=== PATIENT | female | born 1945 | race Hispanic/Latino ===

== ENCOUNTER 2017-07-12 04:04 | Observation (INO) | payer MEDICARE ==
[~2017-07-12] VITALS: Ht 144.8 cm; Wt 67.7 kg
[~2017-07-12 04:04] MED LIST: ADULT ASPIRIN81 MG; ADVAIR; ADVAIR 100-501 EACH INH; ALBUTEROL SULF8.5 GM IN; AMLODIPINE BESYL5 MG PO; ASPIR-LOW81 MG PO; ATENOLOL; CELEBREX200 MG PO; FISH OIL 1,0001 EAC9 PO; FLAGYL250 MG PO; FLUOXETINE HCL20 MG PO; GLIPIZIDE5 MG PO; HYDROCODONE; HYDROCODONE-AP1 EACH PO; IRON PO; KLONOPIN0.5 MG PO; LYRICA50 MG; NAPROXEN; NAPROXEN250 MG PO; NEXIUM40 MG PO; ONDANSETRON HCL4 MG PO; PROAIR HFA INH8.5 GM INH; ROPINIROLE HC0.25 MG PO; SYMBICORT 16010.2 GM; ULTRAM50 MG PO; Z MORPHINE SULFAT; Z.0.ADVAIR 250-501 E PO; Z.0.ATENOLOL100 MG PO; Z.0.GABAPENTIN300 MG PO; Z.0.KLONOPIN0.5 MG; Z.0.NEXIUM40 MG PO; Z.0.RESTASIS1 EACH OU; Z.0.SINGULAIR10 MG PO; Z.0.TIZANIDINE HCL4 PO; Z.1.MECLIZINE HCL25 PO; [UNRECOGNIZED DRUG - OTHER] PO
[2017-07-12] MEDS ORDERED: ONDANSETRON HCL 4 MG ORAL DISINTEGRATING TAB ONE (04:20)
[2017-07-12] MEDS ORDERED: SODIUM CHLORIDE 0.9% 1000ML 1,000 ML IV STA (04:25)
[2017-07-12] MEDS ORDERED: PANTOPRAZOLE 40 MG 10ML VIAL IV STA (04:25)
[2017-07-12] MEDS ORDERED: ONDANSETRON HCL INJ 2 MG/ML VIAL IV STA (04:25)
[2017-07-12] MEDS ORDERED: ONDANSETRON HCL 4 MG ORAL DISINTEGRATING TAB PO ONE (04:30)
[2017-07-12] MEDS ORDERED: SODIUM CHLORIDE 0.9% 1000ML 1,000 ML IV ONE (04:45)
[2017-07-12 04:51] LABS: BILIRUBIN,URINE NEGATIVE (NEGATIVE); KETONES,URINE NEGATIVE (NEGATIVE); LEUKOCYTE ESTERASE ,URINE 1+ (NEGATIVE); NITRITE,URINE NEGATIVE (NEGATIVE); URINE UROBILINOGEN 0.2 mg/dL (0.2 - 1)
[2017-07-12 04:52] LABS: BASOPHILS # (AUTO) 0.1 (0.0-0.1); BASOPHILS % 0.3 % (0.0-1.0); CLARITY,URINE CLEAR (CLEAR); COLOR,URINE YELLOW (YELLOW); EOSINOPHILS % 0.2 % (0.0-6.0); HEMATOCRIT 41.6 % (34.2-44.1); HEMOGLOBIN 14.1 g/dL (12.0-16.0); LYMPHOCYTES # (AUTO) 0.9 (1.0-3.2); MEAN CORPUSCULAR HEMOGLOBIN 29.4 pg (28-32); MEAN CORPUSCULAR HGB CONC 33.9 g/dL (31-35); MEAN CORPUSCULAR VOLUME 86.8 fL (81-99); MONOCYTES # (AUTO) 1.3 (0.2-0.8); NEUTROPHILS # (AUTO) 19.7 (2.1-6.9); NEUTROPHILS % 88.9 % (38.7-80.0); PLATELET COUNT 189 x10e3/uL (140-360); PROTEIN,URINE DIPSTICK TRACE (NEGATIVE); RED BLOOD COUNT 4.79 x10e6/uL (3.6-5.1)
[2017-07-12 04:58] LABS: BACTERIA,URINE FEW /HPF; EPITHELIAL CELLS,URINE FEW /LPF; RBC,URINE 0-5 /HPF (0-5)
[2017-07-12 05:01] LABS: INR 1.16; PROTHROMBIN TIME 13.9 seconds (11.9-14.5)
[2017-07-12 05:02] LABS: PARTIAL THROMBOPLASTIN TIME 29.1 seconds (23.8-35.5)
[2017-07-12 05:09] LABS: CREATINE KINASE 34 IU/L (29-168); MAGNESIUM 1.8 MG/DL (1.3-2.1)
[2017-07-12 05:11] LABS: ALANINE AMINOTRANSFERASE 48 IU/L (0-55); ALBUMIN 4.4 g/dL (3.5-5.0); ALKALINE PHOSPHATASE 82 IU/L (40-150); ANION GAP 15.9 mmol/L (8-16); BLOOD UREA NITROGEN 20 mg/dL (7-26); BUN/CREATININE RATIO 24 (6-25); CALCIUM 8.9 mg/dL (8.4-10.2); CARBON DIOXIDE 23 mmol/L (22-29); CHLORIDE 102 mmol/L (98-107); CREATININE, SERUM 0.85 mg/dL (0.57-1.11); EST GLOMERULAR FILTRATION RATE > 60 ML/MIN (60-); GLUCOSE 310 mg/dL (74-118); POTASSIUM 3.9 mmol/L (3.5-5.1); SODIUM 137 mmol/L (136-145)
--- NOTE | 2017-07-12 05:28 | Diagnostic Imaging Report ---
ABDOMEN COMP INCL UPR or DECUB Clinical history: Vomiting Technique: AP view abdomen Comparison: 07/12/2016 Findings: Abdomen: No dilated loops of bowel. No evidence of free air. Spleen appears prominent in craniocaudal dimension. Vascular calcifications with bilateral common iliac artery stents noted. Impression: Nonobstructive bowel gas pattern Signed by: Dr Justyna Aceves MD on 07/12/2017 5:24 AM
--- NOTE | 2017-07-12 05:29 | Diagnostic Imaging Report ---
CHEST 2 VIEWS, Technique: CHEST 2 VIEWS Comparison: 01/10/2017 Clinical history: Vomiting DISCUSSION: Questionable 4 mm nodule projects over the right lower lung versus summation shadow. Otherwise stable appearance of the heart, mediastinum, lungs and pleural spaces. Aortic calcifications. IMPRESSION: No acute abnormality Signed by: Dr Justyna Aceves MD on 07/12/2017 5:26 AM
[2017-07-12] MEDS ORDERED: IOPAMIDOL 370 MG/ML 200 ML INFUS..BTL INJ ONE (05:31)
[2017-07-12] MEDS ORDERED: SODIUM CHLORIDE 0.9% 50ML 50 ML ONE (05:31)
[2017-07-12] MEDS ORDERED: JANUVIA100 MG PO (06:11)
[2017-07-12] MEDS ORDERED: CLONAZEPAM0.5 MG PO (06:11)
[2017-07-12] MEDS ORDERED: LOSARTAN POTASS25 MG PEG (06:11)
[2017-07-12] MEDS ORDERED: GABAPENTIN100 MG PO (06:11)
[2017-07-12] MEDS ORDERED: FLUOXETINE HCL10 MG PO (06:11)
--- NOTE | 2017-07-12 06:16 | Diagnostic Imaging Report ---
EXAM: CT ABDOMEN/PELVIS W DATE: 07/12/2017 5:02 AM INDICATION: Vomiting, abdominal pain COMPARISON: 01/10/2017 TECHNIQUE: The abdomen and pelvis were scanned using a multidetector helical scanner. Coronal and sagittal reformations were obtained. Routine protocol performed. IV Contrast: 100 ml Isovue 370 FINDINGS: LOWER THORAX: No consolidations LIVER/BILIARY: Stable with calcifications of the liver dome. No biliary ductal dilation. GALLBLADDER: Unremarkable SPLEEN: Prominent spleen size, stable PANCREAS: Stable prominence of the main pancreatic duct. No masses. ADRENALS: No nodules KIDNEYS: Symmetric perfusion. Too small to characterize left renal hypodensity. No hydronephrosis. GI TRACT: Mildly dilated fluid-filled duodenum and jejunum with mucosal hyperemia. Incidental intraluminal duodenal lipoma. Incidental diverticulosis and normal appendix. VESSELS: Severe atherosclerotic changes. Bilateral common iliac artery stents, which appear patent, with multifocal narrowing distal to the stents. PERITONEUM/RETROPERITONEUM: No free air or fluid LYMPH NODES: No lymphadenopathy REPRODUCTIVE ORGANS/BLADDER: Unremarkable SOFT TISSUES: Unremarkable BONES: No suspicious bone lesions. IMPRESSION: Mild proximal enteritis, likely infectious or inflammatory. Signed by: Dr Justyna Aceves MD on 07/12/2017 6:12 AM
[2017-07-12] MEDS: SODIUM CHLORIDE 0.9% 1000ML 1,000 ML IV SCH ×2 (06:41→15:58)
[2017-07-12] MEDS: METRONIDAZOLE 500MG/NS 100ML 100 ML IV SCH ×3 (06:41→21:23)
[2017-07-12] MEDS ORDERED: ONDANSETRON HCL INJ 2 MG/ML VIAL IV PRN (06:45)
[2017-07-12] MEDS ORDERED: MORPHINE SULFATE 2 MG/ML SYR IV PRN (06:45)
[2017-07-12] MEDS ORDERED: DEXTROSE 50% SYRINGE 50 ML IV PRN (06:45)
[2017-07-12] MEDS ORDERED: LOSARTAN POTASSIUM 25 MG TAB ONE (06:55)
--- OUTSIDE RECORDS SUMMARY | 2017-07-12 06:56 | XMS REPORT ---
Author Author [facility] Address Unknown Phone Unavailable Care Team Providers Care Gaming Manager Name Role Phone OLIVIA EPSTEIN Unavailable Unavailable Problems This patient has no known problems. Allergies, Adverse Reactions, Alerts This patient has no known allergies or adverse reactions. Medications This patient has no known medications. Results Test Description Test Time Test Comments Text Results Atomic Results Result Comments CT ABDOMEN/PELVIS W [place] [address] Patient Name: BRENDA OREILLY MR #: [id number] : 1945 Age/Sex: 72/F Req #: [id number] Adm Physician: Ordered by: OLIVIA EPSTEIN MD Report #: [id number] Location: ER Room/Bed: Procedure: [id number] CT/CT ABDOMEN/PELVIS W Exam Date: 07/12/17 Exam Time: 0530 REPORT STATUS: Signed EXAM: CT ABDOMEN/ PELVIS W DATE: 07/12/2017 5:02 AM INDICATION: Vomiting, abdominal pain COMPARISON: 01/10/2017 TECHNIQUE: The abdomen and pelvis were scanned using a multidetector helical scanner. Coronal and sagittal reformations were obtained. Routine protocol performed. IV Contrast: 100 ml Isovue 370 FINDINGS: LOWER THORAX: No consolidations LIVER/BILIARY: Stable with calcifications of the liver dome. No biliary ductal dilation. GALLBLADDER: Unremarkable SPLEEN: Prominent spleen size, stable PANCREAS: Stable prominence of the main pancreatic duct. No masses. ADRENALS: No nodules KIDNEYS: Symmetric perfusion. Too small to characterize left renal hypodensity. No hydronephrosis. GI TRACT: Mildly dilated fluid-filled duodenum and jejunum with mucosal hyperemia. Incidental intraluminal duodenal lipoma. Incidental diverticulosis and normal appendix. VESSELS: Severe atherosclerotic changes. Bilateral common iliac artery stents, which appear patent, with multifocal narrowing distal to the stents. PERITONEUM/ RETROPERITONEUM: No free air or fluid LYMPH NODES: No lymphadenopathy REPRODUCTIVE ORGANS/BLADDER: Unremarkable SOFT TISSUES: Unremarkable BONES: No suspicious bone lesions. IMPRESSION: Mild proximal enteritis, likely infectious or inflammatory. Signed by: Dr Tru Aceves MD on 2017 6:12 AM Dictated By: TRU ACEVES MD 1 Transcribed By: AUBREY on 07/12/17611 COPY TO: OLIVIA EPSTEIN MD ABDOMEN COMP INCL UPR or DECUB [place] [address] Patient Name: BRENDA OREILLY MR #: [id number] : 1945 Age/Sex: 72/F Req #: [id number] Adm Physician: Ordered by: OLIVIA EPSTEIN MD Report #: [id number] Location: ER Room/Bed: Procedure: [id number] DX/ABDOMEN COMP INCL UPR or DECUB Exam Date: 07/12/17 Exam Time: 0445 REPORT STATUS: Signed ABDOMEN COMP INCL UPR or DECUB Clinical history: Vomiting Technique: AP view abdomen Comparison: 07/12/2016 Findings: Abdomen: No dilated loops of bowel. No evidence of free air. Spleen appears prominent in craniocaudal dimension. Vascular calcifications with bilateral common iliac artery stents noted. Impression: Nonobstructive bowel gas pattern Signed by: Dr Tru Aceves MD on 07/12/2017 5:24 AM Dictated By: TRU ACEVES MD 3 Transcribed By: AUBREY on 07/12/17523 COPY TO: OLIVIA EPSTEIN MD CHEST 2 VIEWS [place] [address] Patient Name: BRENDA OREILLY MR #: [id number] : 1945 Age/Sex: 72/F Req # : [id number] Adm Physician: Ordered by: OLIVIA EPSTEIN MD Report #: [id number] Location: ER Room/Bed: Procedure: [id number] DX/CHEST 2 VIEWS Exam Date: 07/12/17 Exam Time: 0445 REPORT STATUS: Signed CHEST 2 VIEWS, Technique: CHEST 2 VIEWS Comparison: 01/10/2017 Clinical history: Vomiting DISCUSSION: Questionable 4 mm nodule projects over the right lower lung versus summation shadow. Otherwise stable appearance of the heart, mediastinum, lungs and pleural spaces. Aortic calcifications. IMPRESSION: No acute abnormality Signed by: Dr Tru Aceves MD on 07/12/2017 5:26 AM Dictated By: TRU ACEVES MD 5 Transcribed By: AUBREY on 07/12/17525 COPY TO: OLIVIA EPSTEIN MD
[2017-07-12] MEDS ORDERED: LOSARTAN POTASSIUM 25 MG TAB PO ONE (07:00)
[2017-07-12] MEDS ORDERED: INSULIN REGULAR, HUMAN 100 UNIT/1 ML 3ML VIAL SQ SCH (07:30)
[2017-07-12] MEDS: PIPER-TAZ 3.375 GM 50 ML IV SCH ×3 (07:56→18:56)
[2017-07-12] MEDS: INSULIN REGULAR, HUMAN 100 UNIT/1 ML 3ML VIAL SQ SCH ×3 (08:00→18:56)
[2017-07-12] MEDS: PANTOPRAZOLE 40 MG 10ML VIAL IV SCH ×2 (09:16→15:58)
[2017-07-12] MEDS ORDERED: ALBUTEROL SULFATE HFA 8GM INHALATION AEROSOL INH PRN (09:45)
[2017-07-12] MEDS ORDERED: TRAMADOL HCL 50 MG TAB PO PRN (09:45)
--- NOTE | 2017-07-12 10:23 | History and Physical ---
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 HISTORY OF PRESENT ILLNESS: Ms. Wendy Mckeon is a 72-year-old female patient with a history of diabetes mellitus, coronary artery disease, previous AR and stent, gastritis. Presented to the emergency room with the above complaint. The patient has not been taking any antibiotics. The patient has no diarrhea and abdominal discomfort. MEDICATIONS: See from the list. ALLERGIES: THE PATIENT IS ALLERGIC TO LEVAQUIN, SULFA AND FLUCONAZOLE. PAST SURGICAL HISTORY: Stent placement. The patient had a previous endoscopy that was done. SOCIAL HISTORY: Denies smoking. Denies using alcohol. FAMILY HISTORY: Diabetes mellitus. REVIEW OF SYSTEMS: Abdominal discomfort, nausea and vomiting. PHYSICAL EXAMINATION GENERAL: She is an elderly female patient lying in bed not in any acute distress. VITALS: Temperature 99, pulse rate 90, respiration rate 22, blood pressure 150/90. HEENT: Normocephalic and atraumatic. No JVD. No lymphadenopathy. LUNGS: Bilateral air equal entry. No rales. No rhonchi. HEART: S1 and S2 regular. No murmurs. ABDOMEN: Soft. Bowel sounds heard. NEURO: No focal neurological deficit. ADMISSION IMPRESSION/DIAGNOSES 1. Acute enteritis with vomiting and dehydration. 2. Diabetes mellitus with hyperglycemia. 3. Hypertension. 4. Systolic and diastolic hypertension. 5. Severe leukocytosis. The patient will be admitted with the above diagnoses. The patient will be treated with IV Flagyl and Zosyn. Will give the patient IV fluids. Check . Sliding scale coverage. Will obtain GI consult with Dr. Eller. Job#: [id number] [place]
[2017-07-12] MEDS: CLONAZEPAM 0.5 MG TAB PO SCH ×2 (10:35→21:23)
[2017-07-12 12:36] LABS: CREATINE KINASE MB 1.1 ng/mL (0.00-5.00)
[2017-07-12] MEDS: PREGABALIN 50 MG CAP PO SCH ×2 (15:58→21:00)
[2017-07-12] MEDS: ROPINIROLE HCL 0.25 MG TAB PO SCH (15:58)
[2017-07-12] MEDS ORDERED: GLIPIZIDE 5 MG TAB PO SCH (17:00)
[2017-07-12 19:19] VITALS: BP 134/54
[2017-07-12 20:29] VITALS: BP 134/54
[2017-07-12 23:18] LABS: BASOPHILS % 0.2 % (0.0-1.0); EOSINOPHILS # (AUTO) 0.1 (0.0-0.4); EOSINOPHILS % 0.9 % (0.0-6.0); HEMATOCRIT 31.2 % (34.2-44.1); HEMOGLOBIN 10.6 g/dL (12.0-16.0); LYMPHOCYTES # (AUTO) 0.7 (1.0-3.2); LYMPHOCYTES % 11.6 % (18.0-39.1); MEAN CORPUSCULAR HEMOGLOBIN 28.8 pg (28-32); MEAN CORPUSCULAR VOLUME 84.8 fL (81-99); MONOCYTES # (AUTO) 0.3 (0.2-0.8); MONOCYTES % 5.6 % (4.4-11.3); NEUTROPHILS # (AUTO) 4.8 (2.1-6.9); NEUTROPHILS % 81.4 % (38.7-80.0); PLATELET COUNT 90 x10e3/uL (140-360); RED BLOOD COUNT 3.68 x10e6/uL (3.6-5.1)
[2017-07-13] VITALS (8 sets, daily range): BP systolic 130–171; BP diastolic 53–77
[2017-07-13] MEDS: PIPER-TAZ 3.375 GM 50 ML IV SCH ×4 (00:48→20:17)
[2017-07-13] MEDS: SODIUM CHLORIDE 0.9% 1000ML 1,000 ML IV SCH ×3 (02:43→23:37)
[2017-07-13] MEDS: INSULIN REGULAR, HUMAN 100 UNIT/1 ML 3ML VIAL SQ SCH ×4 (06:00→18:00)
[2017-07-13] MEDS: METRONIDAZOLE 500MG/NS 100ML 100 ML IV SCH ×5 (06:10→23:37)
[2017-07-13 07:29] LABS: BASOPHILS % 0.5 % (0.0-1.0); EOSINOPHILS # (AUTO) 0.1 (0.0-0.4); EOSINOPHILS % 2.1 % (0.0-6.0); HEMATOCRIT 32.9 % (34.2-44.1); HEMOGLOBIN 10.9 g/dL (12.0-16.0); LYMPHOCYTES # (AUTO) 0.7 (1.0-3.2); LYMPHOCYTES % 18.7 % (18.0-39.1); MEAN CORPUSCULAR HEMOGLOBIN 28.8 pg (28-32); MEAN CORPUSCULAR HGB CONC 33.1 g/dL (31-35); MONOCYTES # (AUTO) 0.3 (0.2-0.8); MONOCYTES % 6.9 % (4.4-11.3); NEUTROPHILS # (AUTO) 2.7 (2.1-6.9); NEUTROPHILS % 71.5 % (38.7-80.0); PLATELET COUNT 98 x10e3/uL (140-360); RED BLOOD COUNT 3.78 x10e6/uL (3.6-5.1); RED CELL DISTRIBUTION WIDTH 12.1 % (11.7-14.4)
[2017-07-13 07:40] LABS: ALANINE AMINOTRANSFERASE 35 IU/L (0-55); ALBUMIN 3.3 g/dL (3.5-5.0); ALBUMIN/GLOBULIN RATIO 0.9 (0.8-2.0); ALKALINE PHOSPHATASE 48 IU/L (40-150); ANION GAP 11.5 mmol/L (8-16); BLOOD UREA NITROGEN 12 mg/dL (7-26); BUN/CREATININE RATIO 17 (6-25); CALCIUM 8.2 mg/dL (8.4-10.2); CARBON DIOXIDE 23 mmol/L (22-29); CHLORIDE 112 mmol/L (98-107); CREATININE, SERUM 0.69 mg/dL (0.57-1.11); EST GLOMERULAR FILTRATION RATE > 60 ML/MIN (60-); GLUCOSE 84 mg/dL (74-118); POTASSIUM 3.5 mmol/L (3.5-5.1); SODIUM 143 mmol/L (136-145)
[2017-07-13] MEDS: BUDESONIDE/FORMOTEROL 160/4.5MCG INHALER INH SCH (08:50)
[2017-07-13] MEDS: PANTOPRAZOLE 40 MG 10ML VIAL IV SCH ×2 (08:54→18:01)
[2017-07-13] MEDS: PREGABALIN 50 MG CAP PO SCH ×3 (09:00→20:16)
[2017-07-13] MEDS: ROPINIROLE HCL 0.25 MG TAB PO SCH ×2 (09:00→17:00)
[2017-07-13] MEDS ORDERED: BUDESONIDE/FORMOTEROL 160/4.5MCG INHALER INH SCH (09:00)
[2017-07-13] MEDS: FLUOXETINE HCL 10 MG CAP PO SCH (09:00)
[2017-07-13] MEDS ORDERED: LORAZEPAM INJ 2 MG/ML VIAL IV ONE (09:40)
[2017-07-13] MEDS: CLONAZEPAM 0.5 MG TAB PO SCH ×2 (09:45→20:16)
[2017-07-13] MEDS ORDERED: POTASSIUM CHLORIDE 20MEQ/100ML 100 ML IV ONE (10:00)
--- NOTE | 2017-07-13 15:07 | Operative Report ---
DATE OF PROCEDURE: July 13, 2017 REFERRING PHYSICIAN: Sanket Owens MD PROCEDURE PERFORMED: Esophagogastroduodenoscopy with biopsies. INDICATIONS FOR EGD: Upper abdominal pain, nausea and vomiting. MEDICATION: Patient was done under MAC. Please see anesthesiologist's note. PROCEDURE: With the patient in the left lateral decubitus position, the flexible fiberoptic Olympus gastroscope was introduced into the esophagus under direct visualization without any difficulty. There was some patchy erythema noted in the distal esophagus. The scope was then advanced with ease into the stomach, and the mucosa overlying the body as well as the fundus revealed changes compatible with diffuse vascular ectasia. Biopsies were obtained, and the patient bled transiently after the biopsies. The antrum just revealed some patchy erythema. Pylorus appeared to be of normal contour and shape. It was intubated with ease, and the scope was advanced all the way to the 2nd portion of the duodenum. A large, longitudinal, polypoid lesion was noted in the 2nd portion of the duodenum, probably originating close to the ampulla. This was described previously on previous EGD. However, it appears to have gotten bigger, and biopsies were obtained. The mucosa overlying the duodenal bulb appeared to be within normal limits. The scope was then withdrawn back into the stomach and retroflexed. Again, diffuse vascular ectasia was noted in the fundus. The scope was then straightened out. It was subsequently withdrawn. Patient tolerated the procedure well. IMPRESSION 1. Distal esophagitis. 2. 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 3. Large polypoid lesion, 2nd portion of duodenum. PLAN: Follow up histology. Initiate full liquid diet. Patient will need a general surgical consult. Job#: [id number] cc:JUAN MIGUEL OWENS MD
[2017-07-13] MEDS: LOSARTAN POTASSIUM 25 MG TAB PEG SCH (15:32)
[2017-07-13] MEDS: SITAGLIPTIN 100 MG TAB PO SCH (15:33)
[2017-07-13] MEDS: ASPIRIN 81 MG CHEW TAB PO SCH (15:51)
[2017-07-13] MEDS: GABAPENTIN 100 MG CAP PO SCH (15:51)
[2017-07-13] MEDS: GLIPIZIDE 5 MG TAB PO SCH (15:52)
[2017-07-13] MEDS ORDERED: LIDOCAINE HCL 2% LOCAL INJ 5 ML SDV VIAL INJ ONE (17:13)
[2017-07-13] MEDS ORDERED: PROPOFOL IV EMULSION 10 MG/ML 50 ML VIAL ONE (17:13)
[2017-07-13] MEDS ORDERED: MIDAZOLAM HCL 2 MG/2 ML VIAL ONE (18:29)
[2017-07-13] MEDS ORDERED: FENTANYL CITRATE/PF 100MCG/2 ML INJ ONE (18:29)
[2017-07-14] VITALS (8 sets, daily range): BP systolic 132–179; BP diastolic 57–95
[2017-07-14] MEDS: PIPER-TAZ 3.375 GM 50 ML IV SCH ×4 (03:10→21:27)
[2017-07-14] MEDS: METRONIDAZOLE 500MG/NS 100ML 100 ML IV SCH ×4 (05:18→23:47)
[2017-07-14 05:57] LABS: BASOPHILS % 0.3 % (0.0-1.0); EOSINOPHILS # (AUTO) 0.1 (0.0-0.4); EOSINOPHILS % 2.2 % (0.0-6.0); HEMATOCRIT 29.4 % (34.2-44.1); HEMOGLOBIN 9.9 g/dL (12.0-16.0); LYMPHOCYTES # (AUTO) 0.7 (1.0-3.2); LYMPHOCYTES % 22.6 % (18.0-39.1); MEAN CORPUSCULAR HEMOGLOBIN 28.9 pg (28-32); MEAN CORPUSCULAR HGB CONC 33.7 g/dL (31-35); MONOCYTES # (AUTO) 0.3 (0.2-0.8); MONOCYTES % 9.2 % (4.4-11.3); NEUTROPHILS # (AUTO) 2.1 (2.1-6.9); NEUTROPHILS % 65.4 % (38.7-80.0); PLATELET COUNT 96 x10e3/uL (140-360); RED BLOOD COUNT 3.42 x10e6/uL (3.6-5.1)
[2017-07-14] MEDS: INSULIN REGULAR, HUMAN 100 UNIT/1 ML 3ML VIAL SQ SCH ×5 (06:05→23:47)
[2017-07-14 06:15] LABS: ALANINE AMINOTRANSFERASE 29 IU/L (0-55); ALBUMIN 3.2 g/dL (3.5-5.0); ALKALINE PHOSPHATASE 45 IU/L (40-150); ANION GAP 11.3 mmol/L (8-16); BLOOD UREA NITROGEN 8 mg/dL (7-26); BUN/CREATININE RATIO 11 (6-25); CALCIUM 7.8 mg/dL (8.4-10.2); CARBON DIOXIDE 21 mmol/L (22-29); CHLORIDE 110 mmol/L (98-107); CREATININE, SERUM 0.73 mg/dL (0.57-1.11); EST GLOMERULAR FILTRATION RATE > 60 ML/MIN (60-); GLUCOSE 154 mg/dL (74-118); POTASSIUM 3.3 mmol/L (3.5-5.1); SODIUM 139 mmol/L (136-145)
[2017-07-14] MEDS ORDERED: POTASSIUM CHLORIDE 20 MEQ TAB CR PO STA (07:20)
[2017-07-14] MEDS: GLIPIZIDE 5 MG TAB PO SCH ×2 (07:30→15:48)
[2017-07-14] MEDS: BUDESONIDE/FORMOTEROL 160/4.5MCG INHALER INH SCH (07:47)
[2017-07-14] MEDS: LOSARTAN POTASSIUM 25 MG TAB PEG SCH (08:21)
[2017-07-14] MEDS: PANTOPRAZOLE 40 MG 10ML VIAL IV SCH ×2 (08:21→17:49)
[2017-07-14] MEDS: ASPIRIN 81 MG CHEW TAB PO SCH (08:22)
[2017-07-14] MEDS: SITAGLIPTIN 100 MG TAB PO SCH (08:22)
[2017-07-14] MEDS: GABAPENTIN 100 MG CAP PO SCH (08:22)
[2017-07-14] MEDS: CLONAZEPAM 0.5 MG TAB PO SCH ×2 (08:52→21:27)
[2017-07-14] MEDS: PREGABALIN 50 MG CAP PO SCH ×3 (08:52→21:00)
[2017-07-14] MEDS: ROPINIROLE HCL 0.25 MG TAB PO SCH ×2 (08:52→16:23)
[2017-07-14] MEDS: FLUOXETINE HCL 10 MG CAP PO SCH (08:52)
[2017-07-14] MEDS: SODIUM CHLORIDE 0.9% 1000ML 1,000 ML IV SCH (12:18)
[2017-07-15] VITALS (7 sets, daily range): BP systolic 167–195; BP diastolic 63–79
[2017-07-15] MEDS: SODIUM CHLORIDE 0.9% 1000ML 1,000 ML IV SCH ×3 (04:45→14:45)
[2017-07-15] MEDS: METRONIDAZOLE 500MG/NS 100ML 100 ML IV SCH ×3 (05:32→18:04)
[2017-07-15] MEDS: PIPER-TAZ 3.375 GM 50 ML IV SCH ×4 (05:32→21:58)
[2017-07-15 05:47] LABS: BASOPHILS % 0.3 % (0.0-1.0); EOSINOPHILS # (AUTO) 0.1 (0.0-0.4); EOSINOPHILS % 2.6 % (0.0-6.0); HEMATOCRIT 29.5 % (34.2-44.1); HEMOGLOBIN 10.2 g/dL (12.0-16.0); LYMPHOCYTES # (AUTO) 0.7 (1.0-3.2); LYMPHOCYTES % 23.7 % (18.0-39.1); MEAN CORPUSCULAR HEMOGLOBIN 29.1 pg (28-32); MEAN CORPUSCULAR HGB CONC 34.6 g/dL (31-35); MONOCYTES # (AUTO) 0.3 (0.2-0.8); MONOCYTES % 8.6 % (4.4-11.3); NEUTROPHILS % 64.5 % (38.7-80.0); PLATELET COUNT 96 x10e3/uL (140-360); RED BLOOD COUNT 3.51 x10e6/uL (3.6-5.1); RED CELL DISTRIBUTION WIDTH 11.9 % (11.7-14.4)
[2017-07-15] MEDS: INSULIN REGULAR, HUMAN 100 UNIT/1 ML 3ML VIAL SQ SCH ×3 (06:00→18:05)
[2017-07-15] MEDS: BUDESONIDE/FORMOTEROL 160/4.5MCG INHALER INH SCH (06:00)
[2017-07-15 06:13] LABS: ANION GAP 10.3 mmol/L (8-16); BLOOD UREA NITROGEN 5 mg/dL (7-26); BUN/CREATININE RATIO 7 (6-25); CALCIUM 8.3 mg/dL (8.4-10.2); CARBON DIOXIDE 23 mmol/L (22-29); CHLORIDE 109 mmol/L (98-107); CREATININE, SERUM 0.68 mg/dL (0.57-1.11); EST GLOMERULAR FILTRATION RATE > 60 ML/MIN (60-); GLUCOSE 114 mg/dL (74-118); POTASSIUM 3.3 mmol/L (3.5-5.1); SODIUM 139 mmol/L (136-145)
[2017-07-15] MEDS: GLIPIZIDE 5 MG TAB PO SCH ×2 (07:54→16:57)
[2017-07-15] MEDS: ROPINIROLE HCL 0.25 MG TAB PO SCH ×2 (08:06→16:57)
[2017-07-15] MEDS: LOSARTAN POTASSIUM 25 MG TAB PEG SCH (08:06)
[2017-07-15] MEDS: FLUOXETINE HCL 10 MG CAP PO SCH (08:06)
[2017-07-15] MEDS: GABAPENTIN 100 MG CAP PO SCH (08:06)
[2017-07-15] MEDS: PANTOPRAZOLE 40 MG 10ML VIAL IV SCH ×2 (08:06→16:57)
[2017-07-15] MEDS: ASPIRIN 81 MG CHEW TAB PO SCH (08:06)
[2017-07-15] MEDS: SITAGLIPTIN 100 MG TAB PO SCH (08:06)
[2017-07-15] MEDS: PREGABALIN 50 MG CAP PO SCH ×3 (08:07→21:00)
[2017-07-15] MEDS: CLONAZEPAM 0.5 MG TAB PO SCH ×2 (08:07→21:58)
[2017-07-15] MEDS ORDERED: POTASSIUM CHLORIDE 20 MEQ TAB CR PO NR (11:30)
[2017-07-15] MEDS ORDERED: CLONIDINE HCL 0.1 MG TAB PO PRN (16:45)
[2017-07-16] VITALS: BP 158/56
[2017-07-16] MEDS: SODIUM CHLORIDE 0.9% 1000ML 1,000 ML IV SCH (00:29)
[2017-07-16] MEDS: METRONIDAZOLE 500MG/NS 100ML 100 ML IV SCH ×2 (00:59→06:12)
[2017-07-16] MEDS: PIPER-TAZ 3.375 GM 50 ML IV SCH (04:33)
[2017-07-16 05:00] VITALS: BP 148/55
[2017-07-16] MEDS: INSULIN REGULAR, HUMAN 100 UNIT/1 ML 3ML VIAL SQ SCH ×2 (06:00)
[2017-07-16] MEDS: BUDESONIDE/FORMOTEROL 160/4.5MCG INHALER INH SCH (06:00)
[2017-07-16 06:23] LABS: BASOPHILS % 0.4 % (0.0-1.0); EOSINOPHILS # (AUTO) 0.1 (0.0-0.4); EOSINOPHILS % 2.5 % (0.0-6.0); HEMATOCRIT 29.2 % (34.2-44.1); HEMOGLOBIN 9.9 g/dL (12.0-16.0); LYMPHOCYTES # (AUTO) 0.7 (1.0-3.2); LYMPHOCYTES % 26.2 % (18.0-39.1); MEAN CORPUSCULAR HEMOGLOBIN 28.8 pg (28-32); MEAN CORPUSCULAR HGB CONC 33.9 g/dL (31-35); MEAN CORPUSCULAR VOLUME 84.9 fL (81-99); MONOCYTES # (AUTO) 0.3 (0.2-0.8); MONOCYTES % 9.7 % (4.4-11.3); NEUTROPHILS # (AUTO) 1.7 (2.1-6.9); NEUTROPHILS % 60.1 % (38.7-80.0); PLATELET COUNT 106 x10e3/uL (140-360); RED BLOOD COUNT 3.44 x10e6/uL (3.6-5.1); RED CELL DISTRIBUTION WIDTH 12.1 % (11.7-14.4)
[2017-07-16 06:57] LABS: ANION GAP 10.4 mmol/L (8-16); BLOOD UREA NITROGEN 7 mg/dL (7-26); BUN/CREATININE RATIO 9 (6-25); CALCIUM 8.1 mg/dL (8.4-10.2); CARBON DIOXIDE 22 mmol/L (22-29); CHLORIDE 106 mmol/L (98-107); CREATININE, SERUM 0.77 mg/dL (0.57-1.11); EST GLOMERULAR FILTRATION RATE > 60 ML/MIN (60-); GLUCOSE 147 mg/dL (74-118); MAGNESIUM 1.6 MG/DL (1.3-2.1); POTASSIUM 3.4 mmol/L (3.5-5.1); SODIUM 135 mmol/L (136-145)
[2017-07-16 07:18] VITALS: BP 147/59
[2017-07-16] MEDS ORDERED: POTASSIUM CHLORIDE 20 MEQ TAB CR PO STA (07:29)
[2017-07-16 08:15] LABS: ANISOCYTOSIS SLIGHT; HYPOCHROMASIA SLIGHT; PLATELET ESTIMATE SLIGHTLY DECREASED; PLATELET MORPHOLOGY COMMENT FEW LARGE; RBC MORPHOLOGY COMMENT NORMAL
[2017-07-16] MEDS: ROPINIROLE HCL 0.25 MG TAB PO SCH (08:33)
[2017-07-16] MEDS: PREGABALIN 50 MG CAP PO SCH (08:33)
[2017-07-16] MEDS: LOSARTAN POTASSIUM 25 MG TAB PEG SCH (08:33)
[2017-07-16] MEDS: GABAPENTIN 100 MG CAP PO SCH (08:33)
[2017-07-16] MEDS: GLIPIZIDE 5 MG TAB PO SCH (08:33)
[2017-07-16] MEDS: FLUOXETINE HCL 10 MG CAP PO SCH (08:33)
[2017-07-16] MEDS: ASPIRIN 81 MG CHEW TAB PO SCH (08:33)
[2017-07-16] MEDS: PANTOPRAZOLE 40 MG 10ML VIAL IV SCH (08:33)
[2017-07-16] MEDS: SITAGLIPTIN 100 MG TAB PO SCH (08:33)
[2017-07-16] MEDS ORDERED: POTASSIUM CHLORIDE 10 MEQ TABCR PO NR (10:00)
--- NOTE | 2017-07-16 10:15 | Discharge Summary ---
She is a 72-year-old female patient of mine who presented with the complaint of abdominal discomfort, abdominal pain and nausea. ADMITTING IMPRESSION/DIAGNOSES 1. Abdominal pain. 2. Enteritis. 3. Diabetes mellitus. 4. Hypertension. 5. Coronary artery disease. 6. Hypokalemia. 7. Anxiety. HOSPITAL COURSE SUMMARY: Patient was admitted with the above diagnoses. Patient was started on IV fluids, IV Protonix and IV antibiotics. GI evaluation was done. Clear liquids were started. Patient underwent EGD. Patient was found to have large polyp in the 2nd part of the duodenum. Dr. Eller had advised surgical opinion as the polypoid lesion has increased in size from previous. Patient did not have outpatient colonoscopy. On EGD findings, the patient has distal esophagitis, gastritis and vascular ectasia. Enlarged polypoid lesion in the duodenum. Patient was treated with IV antibiotics of Flagyl and Zosyn. We will be discharging the patient home on Flagyl. Patient was advised to follow up as an outpatient with Dr. Eller and Dr. Owen for surgery. Further course as per the recommendation of the general surgeon for any surgical intervention for polypoid lesion in the duodenum. JUAN MIGUEL OWENS MD Job#: [id number] MS
[2017-07-16 11:26] VITALS: BP 178/65
[2017-07-16 12:00] VITALS: BP 178/65
[2017-07-16 12:40] VITALS: BP 149/67
== END 2017-07-16 13:45 | disposition home or self-care (01) ==
LOC: ER 04:04 → ERHOLD 06:52 → IMCU 19:04
PROVIDERS: ADMIT Internal Medicine; ATTEND Internal Medicine
DX: A04.9 Bacterial intestinal infection, unspecified (principal); E86.0 Dehydration; I10 Essential (primary) hypertension; I25.2 Old myocardial infarction; I25.10 Atherosclerotic heart disease of native coronary artery without angina pectoris; Z88.1 Allergy status to other antibiotic agents; Z88.2 Allergy status to sulfonamides; E11.65 Type 2 diabetes mellitus with hyperglycemia; D72.829 Elevated white blood cell count, unspecified; K20.9 Esophagitis, unspecified; K31.819 Angiodysplasia of stomach and duodenum without bleeding; K31.7 Polyp of stomach and duodenum; E87.6 Hypokalemia; F41.9 Anxiety disorder, unspecified
CPT/HCPCS: 36415 ×5; 43239; 71046; 74177; 80048 ×2; 80053 ×3; 81001; 82550; 82553; 82948 ×5; 83735 ×2; 84132; 84484; 85025 ×5; 85610; 85730; 87493; 88305; 88312; 93005; 94640 ×4; 96361; 97161; 99284; G0378 ×5; G8978; G8979; G8980; J2001; J2060; J2250; J2270; J2405 ×2; J2543 ×5; J3480; J7030 ×5; J7799; Q9967

== ENCOUNTER 2017-09-14 14:46 | Emergency (ER) | payer MEDICARE ==
[~2017-09-14] VITALS: Ht 144.8 cm; Wt 67.6 kg
[~2017-09-14 14:46] MED LIST changes: +CLONAZEPAM0.5 MG PO; +FLUOXETINE HCL10 MG PO; +GABAPENTIN100 MG PO; +JANUVIA100 MG PO; +LOSARTAN POTASS25 MG PEG
--- OUTSIDE RECORDS SUMMARY | 2017-09-14 14:49 | XMS REPORT | Continuity of Care Document ---
Author Author [facility] Organization [facility] Address [address] [place] [address] Phone Unavailable Care Team Providers Care Histotechnologist Supervisor Name Role Phone JUAN MIGUEL OWENS MD PCP Insurance Providers Guarantor Brenda Oreilly Address [address] [place] [address] Email [email or web address] Payer [employer] Policy Number [id number] Subscriber's Name Brenda Oreilly M Relationship 18 Self / Same As Patient Effective Date 17 Payer [facility] Policy Number [id number] Subscriber's Name Brenda Oreilly Relationship 18 Self / Same As Patient Effective Date 17 Advance Directives Directive Response Recorded Date/Time Does the patient have an advance directive? No 07/12/17 7:30pm If yes, is advance directive on file with [facility]? No 07/12/17 7:30pm If not on file with [facility] will patient provide a copy? Yes 07/12/17 7:30pm Do you have a Directive to Physician? No 07/12/17 5:09am Do you have a Medical Power of Fork Lift Technician? No 07/12/17 5:09am Do you have an out of hospital Do Not Resuscitate Order? No 07/12/17 5:09am Do you have any special needs we should be aware of? No 07/12/17 5:09am Do you have a support person here with you today? Yes 07/12/17 5:09am Did patient receive Notice of Privacy Practices? Yes 07/12/17 5:09am Did patient receive patient rights and responsibilities? Yes 07/12/17 5:09am Problems Medical Problem Onset Date Status Colitis 12/14/2014 Acute Colitis presumed to be due to infection 12/14/2014 Acute Colitis, acute 12/14/2014 Acute Enteritis Unknown Leukocytosis Unknown Vomiting Unknown Medications Current Home Medications Medication Dose Units Route Directions Days Qty Instructions Start Date Albuterol Sulfate (Proair Hfa Inhaler*) 8.5 Gm Inh 2 Inh Inhalation As Needed as needed for Shortness Of Breath Aspirin (Aspir-Low) 81 Mg Tablet.dr 1 Tab Oral Daily Budesonide/Formoterol Fumarate (Symbicort 160-4.5 Mcg Inhaler) 10.2 Gm Hfa.aer.ad 1 [place] Nasal Daily Clonazepam 0.5 Mg Tablet 0.5 Mg Oral Every 12 Hours Flaxseed Oil 1,000 Mg Capsule 20,000 Mg Oral Fluoxetine Hcl 10 Mg Capsule 10 Mg Oral Daily 30 Cap Gabapentin 100 Mg Capsule 100 Mg Oral Daily Glipizide 5 Mg Tablet 5 Mg Oral Twice A Day Losartan Potassium 25 Mg Tablet 1 Tab Peg Tube Daily Pregabalin (Lyrica) 50 Mg Cap 50 Mg Three Times A Day 30 Tab Ropinirole Hcl 0.25 Mg Tablet 0.5 Mg Oral Twice A Day 90 Tab Sitagliptin Phosphate (Januvia) 100 Mg Tablet 100 Mg Oral Daily 30 Tab Tramadol Hcl (Ultram) 50 Mg Tablet 50 Mg Oral Every 6 Hours as needed for Pain Past Home Medications Medication Directions Ordered Status Advair , Discontinued Albuterol Sulfate (Albuterol Sulfate Hfa) 8.5 Gm Hfa.aer.ad, In Vitro As Needed Discontinued Amlodipine Besylate 5 Mg Tablet, 5 Mg Oral Daily Discontinued Aspirin (Adult Aspirin) 81 Mg Tab.chew, Daily Discontinued Atenolol 100 Mg Tablet, 50 Mg Oral As Needed Discontinued Atenolol , Discontinued Celecoxib (Celebrex) 200 Mg Capsule, 200 Mg Oral Daily Discontinued Clonazepam (Klonopin) 0.5 Mg Tablet, 0.5 Mg Oral Bedtime Discontinued Clonazepam (Klonopin*) 0.5 Mg Tablet, 0.5 Mg Route 1-2 Times Daily as needed Discontinued Cyclosporine (Restasis) 1 Each Droperette, 1 Drop Each Eye Twice A Day Discontinued Esomeprazole Magnesium (Nexium) 40 Mg Capsule.dr, 40 Mg Oral Daily Discontinued Fluoxetine Hcl 20 Mg Capsule, 20 Mg Oral Daily Discontinued Fluticasone/Salmeterol (Advair 100-50 Diskus) 1 Each Disk.w.dev, 1 Spr Inhalation Daily Discontinued Fluticasone/Salmeterol (Advair 250-50 Diskus) 1 Each Disk.w.dev, 1 Oral Twice A Day Discontinued Gabapentin 300 Mg Capsule, 300 Mg Oral Twice A Day Discontinued Hydrocodone , Discontinued Hydrocodone Bit/Acetaminophen (Hydrocodone-Apap 10-325 Mg Tab) 1 Each Tablet, 1 Tab Oral Twice A Day as needed Discontinued Iron , 65 Mg Oral Daily Discontinued Meclizine Hcl 25 Mg Tablet, 25 Mg Oral Twice A Day Discontinued Metronidazole (Flagyl) 250 Mg Tablet, 500 Tab Oral Three Times A Day Discontinued Montelukast Sodium (Singulair) 10 Mg Tablet, 10 Mg Oral Daily Discontinued Morphine Sulfate 30 Mg Tablet, Twice A Day Discontinued Naproxen 250 Mg Tablet, 500 Mg Oral Twice A Day Discontinued Naproxen , Discontinued [place]-3/Dha/Epa/Fish Oil (Fish Oil 1,000 Mg Softgel) 1 Each Capsule, 2000 Mg Oral Daily Discontinued Ondansetron Hcl 4 Mg Tablet, 4 Mg Oral As Needed Discontinued Tizanidine Hcl 4 Mg Capsule, 4 Mg Oral Daily Discontinued Social History Social History Problem Response Recorded Date/Time Onset Date Status Hx Psychiatric Problems Yes 07/12/2017 7:30pm Not Applicable Not Applicable Hx Eating Disorder No 07/12/2017 7:30pm Not Applicable Not Applicable Hx Substance Use Disorder No 07/12/2017 7:30pm Not Applicable Not Applicable Hx Depression Yes 07/12/2017 7:30pm Not Applicable Not Applicable Hx Alcohol Use No 07/12/2017 7:30pm Not Applicable Not Applicable Hx Substance Use Treatment No 07/12/2017 7:30pm Not Applicable Not Applicable Hx Physical Abuse No 07/12/2017 7:30pm Not Applicable Not Applicable Smoking Status Start Date Stop Date Current some day smoker Hospital Discharge Instructions No hospital discharge instruction information available. Plan of Care Discharge Date 07/16/17 1:45pm Disposition HOME, SELF-CARE Instructions/Education Provided Dehydration - Adult Prescriptions See Medication Section Referrals (Internal Medicine) Order Date: 5-7 Days Entered Date: 07/16/2017 9:38am (Gastroenterology) Order Date: 7-10 Days Entered Date: 07/16/2017 9:38am (Surgery) Order Date: 7-10 Days Entered Date: 07/16/2017 9:38am Functional Status Query Response Date Recorded FUNCTIONAL STATUS . July 13, 2017 11:53am Assistive Devices None July 12, 2017 7:19pm Ambulation Ability Independent July 12, 2017 7:19pm Toileting Ability Independent July 12, 2017 7:19pm Allergies, Adverse Reactions, Alerts Allergen Type Severity Reaction Status Last Updated Sulfa (Sulfonamide Antibiotics) Allergy Unknown Active 01/10/17 Fluticasone Allergy Unknown THROAT CLOSE Active 01/10/17 Levofloxacin Allergy Unknown RASH/ITCHING Active 01/10/17 Immunizations No immunization information available. Vital Signs Acute Vital Signs Vital Response Date/Time Temperature (Fahrenheit) 97.5 degrees F (97.6 - 99.5) 07/16/2017 12:00pm Pulse Pulse Rate (adult) 74 bpm (60 - 90) 07/16/2017 12:00pm Respiratory Rate 16 bpm (12 - 24) 07/16/2017 12:00pm Blood Pressure 178/65 mm Hg 07/16/2017 12:00pm Height 4 ft 9 in 07/12/2017 7:30pm Weight 149.25 lb 07/16/2017 12:00am Body Mass Index 32.3 kg/m^2 07/16/2017 12:00am Results Laboratory Results Test Name Result Units Flags Reference Collection Date/Time Result Date/ Time Comments Urine Amorphous Sediment MANY H FEW 01/10/2017 2:28pm 01/10/2017 4: 28pm B-Type Natriuretic Peptide 57.7 pg/mL 0-100 01/10/2017 2:43pm 2016 3:32pm Amylase Level 80 U/L 25-125 01/10/2017 2:43pm 01/10/2017 3:46pm Lipase 47 U/L 8-78 01/10/2017 2:43pm 01/10/2017 3:46pm White Blood Count 2.79 x10e3/uL L 4.8-10.8 07/16/2017 5:3207/16/2017 6:24am Red Blood Count 3.44 x10e6/uL L 3.6-5.1 07/16/2017 5:3207/16/2017 6: 24am Hemoglobin 9.9 g/dL L 12.0-16.0 07/16/2017 5:3207/16/2017 6:24am Hematocrit 29.2 % L 34.2-44.1 07/16/2017 5:07/16/2017 6:24am Mean Corpuscular Volume 84.9 fL 81-99 07/16/2017 5:07/16/2017 6: 24am Mean Corpuscular Hemoglobin 28.8 pg 28-32 07/16/2017 5:07/16/2017 6:24am Mean Corpuscular Hemoglobin Concent 33.9 g/dL 31-35 07/16/2017 5:07/16/2017 6:24am Red Cell Distribution Width 12.1 % 11.7-14.4 07/16/2017 5:2017 6:24am Platelet Count 106 x10e3/uL L 140-360 07/16/2017 5:07/16/2017 6: 24am Neutrophils (%) (Auto) 60.1 % 38.7-80.0 07/16/2017 5:07/16/2017 6: 24am Lymphocytes (%) (Auto) 26.2 % 18.0-39.1 07/16/2017 5:07/16/2017 6: 24am Monocytes (%) (Auto) 9.7 % 4.4-11.3 07/16/2017 5:07/16/2017 6: 24am Eosinophils (%) (Auto) 2.5 % 0.0-6.0 07/16/2017 5:07/16/2017 6: 24am Basophils (%) (Auto) 0.4 % 0.0-1.0 07/16/2017 5:07/16/2017 6:24am IM GRANULOCYTES % 1.1 % H 0.0-1.0 07/16/2017 5:32am 07/16/2017 6:24am Neutrophils # (Auto) 1.7 L 2.1-6.9 07/16/2017 5:32am 07/16/2017 6: 24am Lymphocytes # (Auto) 0.7 L 1.0-3.2 07/16/2017 5:32am 07/16/2017 6: 24am Monocytes # (Auto) 0.3 0.2-0.8 07/16/2017 5:32am 07/16/2017 6:24am Eosinophils # (Auto) 0.1 0.0-0.4 07/16/2017 5:32am 07/16/2017 6:24am Basophils # (Auto) 0.0 0.0-0.1 07/16/2017 5:32am 07/16/2017 6:24am Absolute Immature Granulocyte (auto 0.03 x10e3/uL 0-0.1 07/16/2017 5: 32am 07/16/2017 6:24am Platelet Estimate SLIGHTLY DECREASED 07/16/2017 5:32am 07/16/2017 8 :15am Platelet Morphology Comment FEW LARGE 07/16/2017 5:32am 07/16/2017 8:15am Hypochromasia SLIGHT 07/16/2017 5:32am 07/16/2017 8:15am Anisocytosis SLIGHT 07/16/2017 5:32am 07/16/2017 8:15am Red Cell Morphology Comment NORMAL 07/16/2017 5:32am 07/16/2017 8: 15am Prothrombin Time 13.9 seconds 11.9-14.5 07/12/2017 4:30am 07/12/2017 5: 03am Prothromb Time International Ratio 1.16 07/12/2017 4:30am 2017 5:03am Oral Anticoagulant Therapy INR Values: 1. Low Intensity Therapy 1.5 - 2.0 2. Moderate Intensity Therapy 2.0 - 3.0 3. High Intensity Therapy(1) 2.5 - 3.5 4. High Intensity Therapy(2) 3.0 - 4.0 5. Panic Value INR > 5.0 Activated Partial Thromboplast Time 29.1 seconds 23.8-35.5 07/12/2017 4: 30am 07/12/2017 5:03am Urine Color YELLOW YELLOW 07/12/2017 4:30am 07/12/2017 4:52am Urine Clarity CLEAR CLEAR 07/12/2017 4:30am 07/12/2017 4:52am Urine Specific [place] 1.020 1.010-1.025 07/12/2017 4:30am 2017 4:52am Urine pH 5 5 - 7 07/12/2017 4:30am 07/12/2017 4:52am Urine Leukocyte Esterase 1+ H NEGATIVE 07/12/2017 4:30am 07/12/2017 4: 52am Urine Nitrite NEGATIVE NEGATIVE 07/12/2017 4:30am 07/12/2017 4:52am Urine Protein TRACE H NEGATIVE 07/12/2017 4:30am 07/12/2017 4:52am Urine Glucose (UA) 3+ H NEGATIVE 07/12/2017 4:30am 07/12/2017 4:52am Urine Ketones NEGATIVE NEGATIVE 07/12/2017 4:30am 07/12/2017 4:52am Urine Urobilinogen 0.2 mg/dL 0.2 - 1 07/12/2017 4:30am 07/12/2017 4: 52am Urine Bilirubin NEGATIVE NEGATIVE 07/12/2017 4:30am 07/12/2017 4: 52am Urine Blood TRACE H NEGATIVE 07/12/2017 4:30am 07/12/2017 4:52am Urine WBC 6-10 /HPF H 0-5 07/12/2017 4:30am 07/12/2017 4:58am Urine RBC 0-5 /HPF 0-5 07/12/2017 4:30am 07/12/2017 4:58am Urine Bacteria FEW /HPF NONE 07/12/2017 4:30am 07/12/2017 4:58am Urine Epithelial Cells FEW /LPF NONE 07/12/2017 4:30am 07/12/2017 4: 58am Sodium Level 135 mmol/L L 136-145 07/16/2017 5:32am 07/16/2017 6:58am Potassium Level 4.2 mmol/L # 3.5-5.1 07/16/2017 11:32am 07/16/2017 12: 42pm Chloride Level 106 mmol/L 98-107 07/16/2017 5:32am 07/16/2017 6:58am Carbon Dioxide Level 22 mmol/L 22-07/16/2017 5:32am 07/16/2017 6: 58am Anion Gap 10.4 mmol/L 8-16 07/16/2017 5:3207/16/2017 6:58am Blood Urea Nitrogen 7 mg/dL 7-07/16/2017 5:32am 07/16/2017 6:58am Creatinine 0.77 mg/dL 0.57-1.11 07/16/2017 5:32am 07/16/2017 6:58am BUN/Creatinine Ratio 9 6-07/16/2017 5:3207/16/2017 6:58am Estimat Glomerular Filtration Rate > 60 ML/MIN 6007/16/2017 5:32 6:58am Ranges were taken from the National Kidney Disease Education Program and the National Kid[employer] Foundation literature. Reference ranges: 60 or greater: Normal 16-59 (for 3 consecutive months): Chronic kidney disease 15 or less: Kidney failure Glucose Level 147 mg/dL H 74-118 07/16/2017 5:32am 07/16/2017 6:58am Calcium Level 8.1 mg/dL L 8.4-10.2 07/16/2017 5:3207/16/2017 6:58am Bedside Glucose 148 mg/dL H 70-120 07/16/2017 5:53am 07/16/2017 6:06am Meter ID: [id number] Magnesium Level 1.6 MG/DL 1.3-2.1 07/16/2017 5:3207/16/2017 6:58am Total Bilirubin 0.8 mg/dL 0.2-1.2 07/14/2017 5:2707/14/2017 6:48am Aspartate Amino Transf (AST/SGOT) 35 IU/L H 5-34 07/14/2017 5:2707/14 6:48am Alanine Aminotransferase (ALT/SGPT) 29 IU/L 0-55 07/14/2017 5:27 6:48am Total Protein 6.4 g/dL L 6.5-8.1 07/14/2017 5:2707/14/2017 6:48am Albumin 3.2 g/dL L 3.5-5.0 07/14/2017 5:27am 07/14/2017 6:48am Globulin 3.2 g/dL 2.3-3.5 07/14/2017 5:27am 07/14/2017 6:48am Albumin/Globulin Ratio 1.0 0.8-2.0 07/14/2017 5:27am 07/14/2017 6: 48am Alkaline Phosphatase 45 IU/L 40-150 07/14/2017 5:27am 07/14/2017 6: 48am Creatine Kinase 22 IU/L L 29-168 07/12/2017 9:30pm 07/12/2017 10:02pm Creatine Kinase MB 1.00 ng/mL 0-5.0 07/12/2017 9:30pm 07/12/2017 10: 07pm Troponin I 0.01 ng/mL 0.0-0.78 07/12/2017 9:30pm 07/12/2017 10:07pm Clostridium Difficile Toxin A & B NEGATIVE NEGATIVE 07/13/2017 10: 00am 07/13/2017 2:03pm Testing on stool aspirate specimens is outside siding mechanic claims since specimen type not validated on this assay. Procedures Procedure Status Date Provider(s) EGD with biopsy Completed 07/13/17 CHRIS RICHARDSON MD Computed tomography of chest with contrast Active 12/20/16 JUAN MIGUEL OWENS MD X-ray of chest, single view Active 01/10/17 PRISCILLA ROSENTHAL PACE ANALYST Computed tomography of abdomen and pelvis with contrast Active 01/10/17 PRISCILLA ROSENTHAL PACE ANALYST X-ray of chest, two views Active 07/12/17 OLIVIA EPSTEIN MD Computed tomography of abdomen and pelvis with contrast Active 07/12/17 OLIVIA EPSTEIN MD Encounters Encounter Location Arrival/Admit Date Discharge/Depart Date Attending Provider Discharged Inpatient (obs) [facility] 07/12/17 6:52am 1:45pm JUAN MIGUEL OWENS MD Departed Emergency Room [facility] 01/10/17 2:11pm 5:43pm BEATRIZ WALSH MD Registered Clinic [facility] 12/20/16 7:18am JUAN MIGUEL OWENS MD
[2017-09-14] MEDS ORDERED: SODIUM CHLORIDE 0.9% 500ML 500 ML IV ONE (15:15)
[2017-09-14] MEDS ORDERED: ACETAMINOPHEN 325 MG TAB PO ONE (15:15)
[2017-09-14 15:43] LABS: BASOPHILS % 0.2 % (0.0-1.0); EOSINOPHILS # (AUTO) 0.1 (0.0-0.4); EOSINOPHILS % 0.7 % (0.0-6.0); HEMATOCRIT 35.6 % (34.2-44.1); HEMOGLOBIN 12.4 g/dL (12.0-16.0); LYMPHOCYTES % 10.3 % (18.0-39.1); MEAN CORPUSCULAR HEMOGLOBIN 28.6 pg (28-32); MEAN CORPUSCULAR HGB CONC 34.8 g/dL (31-35); MONOCYTES # (AUTO) 0.5 (0.2-0.8); MONOCYTES % 5.5 % (4.4-11.3); NEUTROPHILS # (AUTO) 7.9 (2.1-6.9); NEUTROPHILS % 82.9 % (38.7-80.0); PLATELET COUNT 160 x10e3/uL (140-360); RED BLOOD COUNT 4.34 x10e6/uL (3.6-5.1); RED CELL DISTRIBUTION WIDTH 12.6 % (11.7-14.4)
[2017-09-14 16:02] LABS: ALANINE AMINOTRANSFERASE 29 IU/L (0-55); ALBUMIN 4.1 g/dL (3.5-5.0); ALBUMIN/GLOBULIN RATIO 0.9 (0.8-2.0); ALKALINE PHOSPHATASE 70 IU/L (40-150); ANION GAP 14.9 mmol/L (8-16); BLOOD UREA NITROGEN 13 mg/dL (7-26); BUN/CREATININE RATIO 16 (6-25); CALCIUM 9.8 mg/dL (8.4-10.2); CARBON DIOXIDE 22 mmol/L (22-29); CHLORIDE 103 mmol/L (98-107); CREATININE, SERUM 0.83 mg/dL (0.57-1.11); EST GLOMERULAR FILTRATION RATE > 60 ML/MIN (60-); GLUCOSE 247 mg/dL (74-118); LIPASE 33 U/L (8-78); POTASSIUM 3.9 mmol/L (3.5-5.1); SODIUM 136 mmol/L (136-145)
[2017-09-14 16:22] LABS: BILIRUBIN,URINE NEGATIVE (NEGATIVE); CLARITY,URINE CLEAR (CLEAR); COLOR,URINE YELLOW (YELLOW); KETONES,URINE NEGATIVE (NEGATIVE); LEUKOCYTE ESTERASE ,URINE NEGATIVE (NEGATIVE); NITRITE,URINE NEGATIVE (NEGATIVE); PROTEIN,URINE DIPSTICK NEGATIVE (NEGATIVE); URINE UROBILINOGEN 0.2 mg/dL (0.2 - 1)
[2017-09-14 16:34] LABS: EPITHELIAL CELLS,URINE FEW /LPF; MUCUS,URINE FEW (RARE); RBC,URINE 0-5 /HPF (0-5); WBC,URINE (MAN) 0-5 /HPF (0-5)
--- NOTE | 2017-09-14 17:12 | Diagnostic Imaging Report ---
PROCEDURE: CT ABDOMEN AND PELVIS WITH CONTRAST TECHNIQUE: The abdomen and pelvis were scanned utilizing a multidetector helical scanner from the diaphragm to the lesser trochanter after the IV administration of 100 cc of Isovue 370 and the oral administration of water. Coronal and sagittal multiplanar reformations were obtained. COMPARISON: Patients [facility], CT, CT ABDOMEN/PELVIS W, 07/12/2017, 5:32. INDICATIONS: abdominal pain FINDINGS: LOWER THORAX: Unremarkable. HEPATOBILIARY: Normal hepatic size. Questionable mild nodularity of the hepatic contour. Hepatic steatosis. Stable 0.7 cm and punctate calcifications in the hepatic dome (series 2, images 7 and 8). No intra-or extrahepatic biliary ductal dilation. The bladder is unremarkable. SPLEEN: Mild splenomegaly, measuring 13.2 cm in AP diameter. PANCREAS: No focal masses. Stable mild prominence of the pancreatic duct at the head, which measures 3.5 mm. No calcifications or peripancreatic inflammatory changes. Moderate pancreatic atrophy. ADRENALS: No adrenal nodules. KIDNEYS/URETERS: No hydronephrosis, stones, or solid mass lesions. Stable subcentimeter hypodense lesion in the lateral interpolar left kidney, which is to small to characterize. PELVIC ORGANS/BLADDER: Bladder is unremarkable. Uterus is unremarkable. No adnexal masses. PERITONEUM / RETROPERITONEUM: No free air or fluid. LYMPH NODES: No lymphadenopathy. VESSELS: Atherosclerotic calcification of the abdominal aorta and iliac vessels. Celiac trunk, superior mesenteric, and bilateral renal arteries are patent. The portal, superior mesenteric, and splenic veins are patent. Bilateral common iliac artery stents. Portal vein measures 1.5 cm in diameter GI TRACT: No bowel dilation or evidence of obstruction. No pericolonic inflammatory changes. Sigmoid diverticulosis, without diverticulitis. No wall thickening or intraluminal masses. Stable 1.5 x 2.0 x 3.4 cm fat-containing intraluminal lesion in the second portion of the duodenum (series 2, image 29, coronal image 49 and sagittal image 54), consistent with a lipoma BONES AND SOFT TISSUES: No aggressive lytic lesions. Soft tissues are grossly unremarkable. IMPRESSION: 1. no acute abdominopelvic abnormalities. Specifically, no acute abnormal findings in the bowel. 2. Questionable mild nodularity of the hepatic contour, which may reflect mild cirrhosis. Hepatic steatosis. No focal lesions. 3. Mild splenomegaly and borderline enlargement of the portal vein may reflect portal hypertension. 4. Stable 3.4 cm lipoma in the second portion of the duodenum. Felix Thacker M.D. Dictated by: Felix Thacker M.D. on 09/14/2017 at 17:12 Electronically approved by: Felix Thacker M.D. on 09/14/2017 at 17:13
[2017-09-15] MEDS ORDERED: SODIUM CHLORIDE 0.9% 50ML 50 ML ONE (03:59)
[2017-09-15] MEDS ORDERED: IOPAMIDOL 370 MG/ML 200 ML INFUS..BTL INJ ONE (03:59)
== END 2017-09-14 18:15 | disposition home or self-care (01) ==
LOC: ER 14:46
DX: R10.31 Right lower quadrant pain (principal); R10.32 Left lower quadrant pain; I10 Essential (primary) hypertension; E11.9 Type 2 diabetes mellitus without complications; J44.9 Chronic obstructive pulmonary disease, unspecified; F32.9 Major depressive disorder, single episode, unspecified; I25.2 Old myocardial infarction; Z86.73 Personal history of transient ischemic attack (TIA), and cerebral infarction without residual deficits
CPT/HCPCS: 36415; 74177; 80053; 81001; 83605; 83690; 85025; 99284; J7040

== ENCOUNTER → 2020-07-23 | Outpatient (CLI) | payer MEDICARE | LOC: RAD 09:46 | PROVIDERS: ATTEND Internal Medicine Gastroenterology | DX: R09.89 Other specified symptoms and signs involving the circulatory and respiratory systems (principal) | CPT/HCPCS: 71046 ==

== ENCOUNTER → 2020-07-29 | Outpatient (CLI) | payer MEDICARE ==
[~2020-07-29] MED LIST changes: +ATORVASTATIN CA10 MG PO; +FOLIC ACID PO; +JARDIANCE10 MG PO; +LINZESS145 MCG PO; -LOSARTAN POTASS25 MG PEG; +LOSARTAN POTASS25 MG PO; +METOPROLOL TART25 MG PO; +OMEPRAZOLE40 MG PO; +ONDANSETRON ODT8 MG PO; +PANTOPRAZOLE SO40 MG PO; +PREDNISONE20 MG PO
[2020-07-29 11:32] LABS: BASOPHILS % 0.5 % (0.0-1.0); EOSINOPHILS # (AUTO) 0.1 (0.0-0.4); EOSINOPHILS % 1.6 % (0.0-6.0); HEMATOCRIT 37.4 % (34.2-44.1); HEMOGLOBIN 12.3 g/dL (12.0-16.0); LYMPHOCYTES # (AUTO) 0.9 (1.0-3.2); LYMPHOCYTES % 14.1 % (18.0-39.1); MEAN CORPUSCULAR HEMOGLOBIN 28.7 pg (28-32); MEAN CORPUSCULAR HGB CONC 32.9 g/dL (31-35); MEAN CORPUSCULAR VOLUME 87.4 fL (81-99); MONOCYTES # (AUTO) 0.4 (0.2-0.8); MONOCYTES % 6.8 % (4.4-11.3); NEUTROPHILS # (AUTO) 4.9 (2.1-6.9); NEUTROPHILS % 76.5 % (38.7-80.0); PLATELET COUNT 158 x10e3/uL (140-360); RED BLOOD COUNT 4.28 x10e6/uL (3.6-5.1); RED CELL DISTRIBUTION WIDTH 14.1 % (11.7-14.4)
== END ==
LOC: DX 13:18 → EDSTATUS 08-03 14:30
PROVIDERS: ATTEND Internal Medicine Gastroenterology
DX: Z01.812 Encounter for preprocedural laboratory examination (principal); Z01.818 Encounter for other preprocedural examination; Z12.11 Encounter for screening for malignant neoplasm of colon; R10.13 Epigastric pain; Z20.822 Contact with and (suspected) exposure to COVID-19
CPT/HCPCS: 36415; 85025; 93005; U0002

== ENCOUNTER → 2020-10-07 | Day surgery (SDC) | payer MEDICARE ==
[2020-10-04 12:00] LABS: BASOPHILS # (AUTO) 0.1 (0.0-0.1); BASOPHILS % 0.6 % (0.0-1.0); EOSINOPHILS # (AUTO) 0.1 (0.0-0.4); EOSINOPHILS % 0.8 % (0.0-6.0); HEMATOCRIT 38.4 % (34.2-44.1); HEMOGLOBIN 12.7 g/dL (12.0-16.0); LYMPHOCYTES # (AUTO) 1.5 (1.0-3.2); LYMPHOCYTES % 17.8 % (18.0-39.1); MEAN CORPUSCULAR HEMOGLOBIN 28.3 pg (28-32); MEAN CORPUSCULAR HGB CONC 33.1 g/dL (31-35); MEAN CORPUSCULAR VOLUME 85.5 fL (81-99); MONOCYTES # (AUTO) 0.5 (0.2-0.8); MONOCYTES % 5.9 % (4.4-11.3); NEUTROPHILS # (AUTO) 6.3 (2.1-6.9); NEUTROPHILS % 74.5 % (38.7-80.0); PLATELET COUNT 150 x10e3/uL (140-360); RED BLOOD COUNT 4.49 x10e6/uL (3.6-5.1); RED CELL DISTRIBUTION WIDTH 13.5 % (11.7-14.4)
[~2020-10-07] MED LIST changes: +FENTANYL CITRATE/PF 100MCG/2 ML INJ ONE; +HYOSCYAMINE SULFATE 0.5 MG/ML INJ ONE; +LIDOCAINE HCL 2% LOCAL INJ 5 ML SDV VIAL INJ ONE; +MIDAZOLAM HCL 2 MG/2 ML VIAL ONE; +PANTOPRAZOLE 40 MG 10ML VIAL ONE; +PROPOFOL IV EMULSION 10 MG/ML 20 ML VIAL ONE
[2020-10-07 09:30] VITALS: BP 134/90
== END | disposition home or self-care (01) ==
LOC: OR 05:50
PROVIDERS: ATTEND Internal Medicine Gastroenterology
DX: K22.2 Esophageal obstruction (principal); K63.5 Polyp of colon; K31.7 Polyp of stomach and duodenum; K29.70 Gastritis, unspecified, without bleeding; K31.89 Other diseases of stomach and duodenum; K21.9 Gastro-esophageal reflux disease without esophagitis; K59.09 Other constipation; K57.30 Diverticulosis of large intestine without perforation or abscess without bleeding; K64.8 Other hemorrhoids; J45.909 Unspecified asthma, uncomplicated; I10 Essential (primary) hypertension; E78.5 Hyperlipidemia, unspecified; I25.10 Atherosclerotic heart disease of native coronary artery without angina pectoris; I25.2 Old myocardial infarction; E11.9 Type 2 diabetes mellitus without complications; F41.9 Anxiety disorder, unspecified; F32.9 Major depressive disorder, single episode, unspecified; Z88.1 Allergy status to other antibiotic agents; Z88.2 Allergy status to sulfonamides; Z88.8 Allergy status to other drugs, medicaments and biological substances; Z01.812 Encounter for preprocedural laboratory examination; Z20.822 Contact with and (suspected) exposure to COVID-19; Z79.84 Long term (current) use of oral hypoglycemic drugs; Z79.82 Long term (current) use of aspirin; Z86.19 Personal history of other infectious and parasitic diseases; Z86.73 Personal history of transient ischemic attack (TIA), and cerebral infarction without residual deficits; Z98.61 Coronary angioplasty status
CPT/HCPCS: 36415 ×2; 43239; 43450; 45380; 82948; 85025; 87106; 87205; 88104; 88112; 88305; 88312; C9113; J1980; J2001; J2250; J2704; J3010; U0002; 43235; 43250; 45378

== ENCOUNTER 2021-04-18 21:48 | Emergency (ER) | payer MEDICARE ==
[~2021-04-18] VITALS: Ht 144.8 cm; Wt 67.6 kg
[~2021-04-18 21:48] MED LIST changes: -FENTANYL CITRATE/PF 100MCG/2 ML INJ ONE; -HYOSCYAMINE SULFATE 0.5 MG/ML INJ ONE; -LIDOCAINE HCL 2% LOCAL INJ 5 ML SDV VIAL INJ ONE; -MIDAZOLAM HCL 2 MG/2 ML VIAL ONE; -PANTOPRAZOLE 40 MG 10ML VIAL ONE; -PROPOFOL IV EMULSION 10 MG/ML 20 ML VIAL ONE
[2021-04-18] MEDS ORDERED: ONDANSETRON HCL INJ 2MG/ML 2ML 2 MG/ML VIAL IV STA (22:10)
[2021-04-18] MEDS ORDERED: Morphine 2mg Syringe 2 MG/ML SYR IV ONE (22:15)
[2021-04-18 22:20] LABS: BASOPHILS # (AUTO) 0.1 (0.0-0.1); BASOPHILS % 0.5 % (0.0-1.0); EOSINOPHILS % 0.3 % (0.0-6.0); HEMATOCRIT 41.4 % (34.2-44.1); HEMOGLOBIN 13.5 g/dL (12.0-16.0); LYMPHOCYTES # (AUTO) 1.4 (1.0-3.2); LYMPHOCYTES % 11.2 % (18.0-39.1); MEAN CORPUSCULAR HEMOGLOBIN 27.7 pg (28-32); MEAN CORPUSCULAR HGB CONC 32.6 g/dL (31-35); MONOCYTES # (AUTO) 0.8 (0.2-0.8); MONOCYTES % 6.6 % (4.4-11.3); NEUTROPHILS # (AUTO) 10.1 (2.1-6.9); NEUTROPHILS % 81.1 % (38.7-80.0); PLATELET COUNT 183 x10e3/uL (140-360); RED BLOOD COUNT 4.87 x10e6/uL (3.6-5.1); RED CELL DISTRIBUTION WIDTH 12.5 % (11.7-14.4)
[2021-04-18] MEDS ORDERED: Morphine 2mg Syringe 2 MG/ML SYR ONE (22:23)
[2021-04-18] MEDS ORDERED: ONDANSETRON HCL INJ 2MG/ML 2ML 2 MG/ML VIAL ONE (22:23)
[2021-04-18] MEDS ORDERED: DIATRIZOATE MEGL/DIATRIZOA SOD 30 ML BTL PO ONE (22:29)
[2021-04-18 22:31] LABS: CLARITY,URINE SL CLOUDY (CLEAR); COLOR,URINE YELLOW (YELLOW); KETONES,URINE TRACE (NEGATIVE); LEUKOCYTE ESTERASE ,URINE NEGATIVE (NEGATIVE); NITRITE,URINE NEGATIVE (NEGATIVE); PROTEIN,URINE DIPSTICK NEGATIVE (NEGATIVE)
[2021-04-18 22:32] LABS: URINE UROBILINOGEN 0.2 mg/dL (0.2 - 1)
[2021-04-18 22:39] LABS: AMYLASE 61 U/L (25-125); LIPASE 30 U/L (8-78)
[2021-04-18 22:40] LABS: ALBUMIN 4.7 g/dL (3.5-5.0); ALBUMIN/GLOBULIN RATIO 1.5 (0.8-2.0); ANION GAP 17.1 mmol/L (8-16); CALCIUM 9.3 mg/dL (8.4-10.2); CREATININE, SERUM 0.96 mg/dL (0.57-1.11); POTASSIUM 4.1 mmol/L (3.5-5.1)
[2021-04-18 23:01] LABS: BACTERIA,URINE FEW /HPF; EPITHELIAL CELLS,URINE FEW /LPF
[2021-04-19 01:05] VITALS: BP 164/75
[2021-04-19] MEDS ORDERED: HYDROCODON-ACE1 EAC9 PO (01:07)
[2021-04-19] MEDS ORDERED: METRONIDAZOLE500 MG PO (01:07)
[2021-04-19] MEDS ORDERED: CEFDINIR300 MG PO (01:07)
[2021-04-19] MEDS ORDERED: HYDROCODONE/APAP 5MG-325MG TAB PO ONE (01:15)
[2021-04-19] MEDS ORDERED: IOPAMIDOL 370 MG/ML 200 ML INFUS..BTL INJ ONE (05:33)
[2021-04-19] MEDS ORDERED: SODIUM CHLORIDE 0.9% 50ML 50 ML ONE (05:33)
== END 2021-04-19 02:00 | disposition home or self-care (01) ==
LOC: ER 22:14
DX: K52.9 Noninfective gastroenteritis and colitis, unspecified (principal); R10.30 Lower abdominal pain, unspecified; E11.65 Type 2 diabetes mellitus with hyperglycemia; I10 Essential (primary) hypertension; J44.9 Chronic obstructive pulmonary disease, unspecified; I25.10 Atherosclerotic heart disease of native coronary artery without angina pectoris; F41.9 Anxiety disorder, unspecified; I25.2 Old myocardial infarction; Z95.5 Presence of coronary angioplasty implant and graft; Z86.73 Personal history of transient ischemic attack (TIA), and cerebral infarction without residual deficits
CPT/HCPCS: 36415; 74177; 80053; 81001; 82150; 83690; 85025; 99284; J2270; J2405; Q9967

== ENCOUNTER 2021-07-01 09:55 | Emergency (ER) | payer MEDICARE ==
[~2021-07-01] VITALS: Ht 144.8 cm; Wt 67.6 kg
[~2021-07-01 09:55] MED LIST changes: +CEFDINIR300 MG PO; +HYDROCODON-ACE1 EAC9 PO; +METRONIDAZOLE500 MG PO
[2021-07-01] MEDS ORDERED: SODIUM CHLORIDE 0.9% 1000ML 1,000 ML IV STA (10:13)
[2021-07-01 10:26] LABS: BASOPHILS # (AUTO) 0.1 (0.0-0.1); BASOPHILS % 0.6 % (0.0-1.0); EOSINOPHILS # (AUTO) 0.1 (0.0-0.4); EOSINOPHILS % 1.1 % (0.0-6.0); HEMATOCRIT 39.9 % (34.2-44.1); HEMOGLOBIN 12.4 g/dL (12.0-16.0); LYMPHOCYTES # (AUTO) 1.3 (1.0-3.2); LYMPHOCYTES % 16.4 % (18.0-39.1); MEAN CORPUSCULAR HEMOGLOBIN 27.1 pg (28-32); MEAN CORPUSCULAR HGB CONC 31.1 g/dL (31-35); MEAN CORPUSCULAR VOLUME 87.1 fL (81-99); MONOCYTES # (AUTO) 0.5 (0.2-0.8); NEUTROPHILS % 75.6 % (38.7-80.0); PLATELET COUNT 237 x10e3/uL (140-360); RED BLOOD COUNT 4.58 x10e6/uL (3.6-5.1); RED CELL DISTRIBUTION WIDTH 13.2 % (11.7-14.4)
[2021-07-01 10:50] LABS: INR 0.99; PROTHROMBIN TIME 13.8 seconds (11.9-14.5)
[2021-07-01 10:51] LABS: PARTIAL THROMBOPLASTIN TIME 33.4 seconds (23.8-35.5)
[2021-07-01 11:00] LABS: CREATININE, SERUM 0.79 mg/dL (0.57-1.11)
[2021-07-01 11:01] LABS: ALBUMIN 4.5 g/dL (3.5-5.0); ALBUMIN/GLOBULIN RATIO 1.1 (0.8-2.0); CALCIUM 9.9 mg/dL (8.4-10.2)
[2021-07-01 11:07] LABS: CREATINE KINASE MB 1.5 ng/mL (0-5.0)
[2021-07-01] MEDS ORDERED: SODIUM CHLORIDE 0.9% 100 ML ONE (12:52)
[2021-07-01] MEDS ORDERED: IOPAMIDOL 370 MG/ML 200 ML INFUS..BTL INJ ONE (12:53)
== END 2021-07-01 13:48 | disposition home or self-care (01) ==
LOC: ER 10:00
DX: I97.638 Postprocedural hematoma of a circulatory system organ or structure following other circulatory system procedure (principal); I10 Essential (primary) hypertension; E11.65 Type 2 diabetes mellitus with hyperglycemia; J44.9 Chronic obstructive pulmonary disease, unspecified; F41.9 Anxiety disorder, unspecified; I25.10 Atherosclerotic heart disease of native coronary artery without angina pectoris; J45.909 Unspecified asthma, uncomplicated; I25.2 Old myocardial infarction; Z95.5 Presence of coronary angioplasty implant and graft; Z86.73 Personal history of transient ischemic attack (TIA), and cerebral infarction without residual deficits
CPT/HCPCS: 36415; 75635; 80053; 82550; 82553; 84484; 85025; 85610; 85730; 93005; 99284; J7030; J7050; Q9967

== ENCOUNTER → 2022-11-14 | Outpatient (CLI) | payer MEDICARE | LOC: RAD 10:20 | PROVIDERS: ATTEND Internal Medicine Critical Care Medicine | DX: R06.00 Dyspnea, unspecified (principal) | CPT/HCPCS: 71046 ==